=== PATIENT | male | born 2000 | race Caucasian/White ===

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

== ENCOUNTER 2021-06-09 04:06 | Emergency (ER) | payer OTHER ==
[2021-06-09 04:11] VITALS: BP 151/85; PULSE 68; RESP 16; TEMP 97
[2021-06-09] MEDS ORDERED: AMOXICILLIN 500MG STARTER PACK 3 CAP BTL PO STA (04:59)
[2021-06-09] MEDS ORDERED: OFLOXACIN 0.3% OPHTH DROPS 5 ML BOTTLE RIGHT EAR ONE (05:00)
--- NOTE | 2021-06-09 05:03 | ED ---
ENT HPI - General Chief complaint: ENT Stated complaint: Ear Pain Time Seen by Provider: 06/09/21 04:44 Source: patient Mode of arrival: ambulatory Limitations: no limitations - History of Present Illness Initial comments: Musa is a previously healthy 20-year-old male who presents to the ER today for evaluation of 2-3 days of right-sided ear pain. Patient denies any history of ear infections never had tubes as a kid. Patient reports his ear hurts hurts with movement but also is worse when he lays flat. No fever chills no rhinorrhea no viral URI symptoms. - Related Data Previous Rx's Medication Instructions Recorded Amoxicillin 875 mg PO Q12HR 5 Days #10 tablet 06/09/21 Allergies Allergy/AdvReac Type Severity Reaction Status Date / Time No Known Allergies Allergy Verified 06/09/21 04:07 Review of Systems ROS Statement: Those systems with pertinent positive or pertinent negative responses have been documented in the HPI. ROS Other: All systems not noted in ROS Statement are negative. Past Medical History Additional Past Medical History / Comment(s): Narrowing of aortic valve History of Any Multi-Drug Resistant Organisms: None Reported Past Surgical History: Heart Catheterization With Stent Past Psychological History: No Psychological Hx Reported Smoking Status: Current every day smoker Past Alcohol Use History: None Reported Past Drug Use History: Marijuana General Exam - General Exam Comments Initial Comments: Physical Exam GENERAL: Patient is well-developed and well-nourished. Patient is nontoxic and well-hydrated and is in no distress. HENT: Normocephalic, Atraumatic. Left TM is normal Right TM is erythematous however the entire canal is erythematous and edematous consistent with otitis externa EYES: PERRL, EOMI PULMONARY: Unlabored respirations. CARDIOVASCULAR: RRR Warm and well perfused extremities ABDOMEN: Non-distended SKIN: No rashes or bruising : Deferred NEUROLOGIC: Alert and oriented Normal speech Normal gait MUSCULOSKELETAL: Moving all extremities with no apparent injury PSYCHIATRIC: No SI/HI Limitations: no limitations Course Vital Signs 06/09/21 04:08 Temperature 97 F L Pulse Rate 68 Respiratory 16 Rate Blood Pressure 151/85 O2 Sat by Pulse 100 Oximetry Medical Decision Making - Medical Decision Making She was seen and evaluated, history is obtained from patient history and physical exam are concerning for otitis externa with possible otitis media. Patient will be treated with ofloxacin drops as well as oral amoxicillin for 5 days. Treatment plan was discussed with patient first dose of medications were given here in the ER and patient was discharged home in stable condition. Disposition Clinical Impression: Otitis externa Disposition: HOME SELF-CARE Condition: Stable Additional Instructions: Apply 10 drops of the ear drops in ear once daily for the next 7 days. Is patient prescribed a controlled substance at d/c from ED?: No Referrals: Magnus Johnson MD [Primary Care Provider] - 1-2 days
== END 2021-06-09 05:27 | disposition home or self-care (01) ==
LOC: EC 04:06
DX: H60.91 Unspecified otitis externa, right ear (principal); F17.200 Nicotine dependence, unspecified, uncomplicated; F12.90 Cannabis use, unspecified, uncomplicated
CPT/HCPCS: 99282